=== PATIENT | male | born 1965 | race Caucasian/White ===

== ENCOUNTER 2024-01-11 10:56 | Outpatient (CLI) | payer MEDICARE, SELFPAY ==
[2024-01-11 11:26] LABS: Basophils # 0.1 K/mm3 (0-0.2); Basophils % 0.7 % (0.1-2.0); Eosinophils # 0.1 K/mm3 (0.0-0.4); Eosinophils % 1.7 % (0.1-12.0); Hemoglobin 14.7 g/dL (14.1-18.0); Lymphocytes # 2.3 K/mm3 (0.7-4.5); Mean Corpuscular HGB Conc 33.3 g/dL (31.8-35.4); Mean Corpuscular Hemoglobin 30.4 pg (27.0-31.2); Mean Corpuscular Volume 91.2 fl (80-94); Mean Platelet Volume 7.5 fl (7.4-10.4); Monocytes # 0.6 K/mm3 (0.1-1.0); Monocytes % 8.2 % (1.7-9.3); Neutrophils # 3.9 K/mm3 (1.8-7.8); Neutrophils % 56.4 % (37.0-80.0); Platelet Count 253 K/mm3 (142-424); Red Blood Count 4.83 M/mm3 (4.60-6.20); Red Cell Distribution Width 13.7 % (11.5-17.5); White Blood Count 6.8 K/mm3 (4.8-10.8)
[2024-01-11 11:55] LABS: Uric Acid 4.3 mg/dl (3.5-8.5)
[2024-01-11 11:59] LABS: Erythrocyte Sedimentation Rate 3 mm/hr (0-20)
[2024-01-11 12:00] LABS: C-Reactive Protein 5.5 mg/L (0-4)
[2024-01-12 08:30] LABS: RA Latex Turbid. <10.0 IU/mL (<14.0)
[2024-01-12 13:14] LABS: Anti-Cyclic Citrullinated Pept 6 units (0-19)
[2024-01-12 18:10] LABS: Antinuclear Antibodies, IFA Negative (.)
[2024-01-16 15:14] LABS: D001-IgE D pteronyssinus <0.10 kU/L (Class 0); D002-IgE D farinae <0.10 kU/L (Class 0); E001-IgE Cat Dander <0.10 kU/L (Class 0); E005-IgE Dog Dander <0.10 kU/L (Class 0); E072-IgE Mouse Urine <0.10 kU/L (Class 0); G002-IgE Bermuda Grass 2.09 kU/L (Class III); G006-IgE Timothy Grass 0.75 kU/L (Class II); Immunoglobulin E, Total 127 IU/mL (6-495); M001-IgE Penicillium chrysogen <0.10 kU/L (Class 0); M002-IgE Cladosporium herbarum <0.10 kU/L (Class 0); M003-IgE Aspergillus fumigatus <0.10 kU/L (Class 0); M006-IgE Alternaria alternata <0.10 kU/L (Class 0); T003-IgE Common Silver Birch 6.28 kU/L (Class IV); T006-IgE Cedar, Mountain 1.01 kU/L (Class II); T007-IgE Oak, White 4.65 kU/L (Class IV); T008-IgE Elm, American 3.25 kU/L (Class III); T010-IgE Walnut 6.32 kU/L (Class IV); T011-IgE Maple Leaf Sycamore 1.51 kU/L (Class III); T014-IgE Cottonwood 1.85 kU/L (Class III); T015-IgE Ash, White 8.82 kU/L (Class IV); T022-IgE Pecan, Hickory 5.31 kU/L (Class IV); T070-IgE White Mulberry 0.27 kU/L (Class 0/I); W001-IgE Ragweed, Short 2.32 kU/L (Class III); W011-IgE Thistle, Russian 1.14 kU/L (Class II); W014-IgE Pigweed, Common 2.12 kU/L (Class III); W018-IgE Sheep Sorrel 2.09 kU/L (Class III)
[2024-01-31 11:59] LABS: Antinuclear Antibodies (ANA) Negative
== END 2024-01-11 23:59 | disposition home or self-care (01) ==
LOC: LAB 10:57
PROVIDERS: PCP Family Medicine; Visit Provider Internal Medicine Pulmonary Disease
DX: J30.9 Allergic rhinitis, unspecified; J84.9 Interstitial pulmonary disease, unspecified; R06.09 Other forms of dyspnea; J98.4 Other disorders of lung
CPT/HCPCS: 36415; 82785; 84550; 85025; 85651; 86003; 86038; 86140; 86200; 86225; 86235; 86431

== ENCOUNTER 2024-02-08 14:07 | Outpatient (CLI) | payer MEDICARE, SELFPAY ==
--- NOTE | 2024-02-08 14:08 | CT_ITS ---
FINAL REPORT TECHNIQUE: Axial images were obtained from the lung apex to the mid abdomen by computed tomography. Coronal reformatted images were obtained. Supine inspiration and expiration and prone inspiration hi-resolution images were obtained and reviewed. This study was performed with techniques to keep radiation doses as low as reasonably achievable, (ALARA). Individualized dose reduction techniques using automated exposure control or adjustment of mA and/or kV according to the patient''s size were employed. CLINICAL HISTORY: .NODULE, shortness of breath, high resolution chest (inspiration and expiration, prone inspiration) COMPARISON: None FINDINGS: There is no axillary adenopathy. There is no hilar or mediastinal adenopathy. Heart size is normal. There are moderate coronary artery calcifications. There is no pericardial or pleural effusion. No suspicious infiltrate or nodule is identified. There is no evidence of bronchiectasis. Minimal scarring is noted at the bases. On prone images, scarring persists. On supine expiration images, there is no evidence of air trapping. Limited images of the upper abdomen demonstrate diffuse fatty infiltration liver. Density in the posterior right lobe of the liver is slightly higher attenuation in the adjacent parenchyma and measures 2.6 x 2.0 cm. This could represent hemangioma. IMPRESSION: Scarring in the bases. Subtle density right lobe of the liver may be a hemangioma. Correlation with infused CT abdomen and pelvis recommended for full characterization. Reviewed, Interpreted and Dictated by George Pineda MD Transcribed by Allie Mello Authenticated and [facility]
== END 2024-02-08 23:59 | disposition home or self-care (01) ==
LOC: RAD 14:08
PROVIDERS: PCP Family Medicine; Visit Provider Internal Medicine Pulmonary Disease
DX: J84.9 Interstitial pulmonary disease, unspecified (principal); R06.09 Other forms of dyspnea
CPT/HCPCS: 71250; 94060; 94618; 94726; 94729

== ENCOUNTER 2025-02-21 09:51 | Outpatient (CLI) | payer BC, MEDICARE, SELFPAY ==
--- OUTSIDE RECORDS SUMMARY | 2025-02-21 09:55 | XMS_ITS | Clinical Summary ---
Author Organization [facility] Address [address] [place] [address] Care Team Providers Care Singer And Unloader Name Role Phone Anabel Rubio MD Primary Care Provider + Allergies No known active allergies Medications tamsulosin (FLOMAX) 0.4 MG capsule 24 hr capsule Take 1 capsule by mouth Daily. 08/24/19 24 Active metFORMIN (GLUCOPHAGE) 500 MG tablet Take 2 tablets by mouth 2 (Two) Times a Day. 04/27/20 23 Active glipizide (GLUCOTROL XL) 5 MG ER tablet Take 1 tablet by mouth Every Morning. 08/24/19 24 Active aspirin 81 MG chewable tablet Chew 1 tablet Daily. Active metoprolol succinate XL (TOPROL-XL) 25 MG 24 hr tabletIndications:Abnorm al findings on diagnostic imaging of heart and coronary circulation,Primary hypertension,Type 2 diabetes mellitus without complication, without long-term current use of insulin,Pure hypercholesterolemia Take 1 tablet by mouth Daily. 90 tablet 1 11/17/19 24 Active lisinopril (PRINIVIL,ZESTRIL) 40 MG tablet Take 1 tablet by mouth Daily. 90 tablet 1 11/17/19 24 Active clopidogrel (PLAVIX) 75 MG tabletIndications:Primar y hypertension,Coronary artery disease of [place] artery of [place] heart with stable angina pectoris Take 1 tablet by mouth Daily. 90 tablet 3 02/22/20 24 Active atorvastatin (LIPITOR) 80 MG tabletIndications:Abnorm al findings on diagnostic imaging of heart and coronary circulation,Primary hypertension,Type 2 diabetes mellitus without complication, without long-term current use of insulin,Pure hypercholesterolemia Take 1 tablet by mouth once daily 30 tablet 01/11/20 25 Active Active Problems Problem Noted Date Diagnosed Date Coronary artery disease of n ative artery of [place] heart with stable angina pectoris 11/17/2023 Overview (11/17/2023): 11/07/2023 left heart cath-85% mid LAD stenosis treated 3.25 x 23 Xience EVELYNE, postdilated proximally 3.5 NC trek balloon. LV EF 55% Assessment & Plan (08/22/2024 12:56 PM EDT): S/P stent mid LAD 11/07/2023. Patient to continue aspirin, clopidogrel, atorvastatin, lisinopril, and metoprolol. Assessment & Plan (02/22/2024 12:52 PM EDT): Coronary Artery Disease (OPTIONAL): Coronary artery disease is stable. Continue current treatment regimen.Atorvastatin, clopidogrel, ASA, metoprolol, and lisinopril. Cardiac status will be reassessed in 6 months. Abnormal screening cardiac CT 10/27/2023 Abnormal PFT 10/02/2023 Assessment & Plan (10/02/2023 4:10 PM EDT): -Referral to pulmonology -Trial of Symbicort inhaler Gastroesophageal reflux disease 09/13/2023 Abnormal EKG 09/13/2023 SOB (shortness of breath) 09/13/2023 Assessment & Plan (10/02/2023 4:09 PM EDT): PFTs showed reduced lung volumes, increased FEV1/FVC ratio, diffusion defect and mal distribution, consistent with an interstitial process such as interstitial inflammation or fibrosis. Moderate restriction and mild diffusion defect noted. He has no known lung disease, although he has been told in the past that he may have asthma. We discussed pulmonology referral and he is agreeable. Tachycardia 09/13/2023 Assessment & Plan (10/02/2023 4:09 PM EDT): His resting heart rate is 90s to 120s. We discussed that his beta-matthew will most likely need to be increased after monitor results reviewed. Obstructive sleep apnea syndrome 04/27/2023 Assessment & Plan (11/15/2024 12:49 PM EDT): Patient has a baseline AHI 87 on a split study in 2019. Download shows good compliance and good control. Mask fit is comfortable. Patient is receiving benefit from pap therapy. Plan to continue current treatment. Follow up in 6 months or sooner for any MASON or PAP concerns. Assessment & Plan (08/22/2024 12:53 PM EDT): Patient has a baseline AHI 87 on a split study in 2019. Download shows good compliance and good control. Mask fit is comfortable. Patient reports that he has had his machine greater than 5 years and it is starting to run very loud at night waking his up. His tells him he needs to get a new machine through his insurance. Patient states that he could not do the titration study. He states airflow and mask fit are comfortable. We did discuss the 2-hour leak around his mask. Patient states that he does not hear at. Patient is receiving benefit from PAP therapy. Plan to continue current treatment. Prescription for new ResMed auto BiPAPI 18/ E 11 PS 7 with pap supplies sent to DME of patient choice. Follow-up in 6 weeks for insurance compliance visit. Assessment & Plan (02/22/2024 12:56 PM EDT): Patient has a baseline AHI on his split PSG 08/11/2018 of 87. Download shows suboptimal compliance with good control. Mask fit is comfortable. Patient does report that the airflow is feels a little strong and sometimes feels like he is smothering. Patient is agreeable to doing a titration study to consider BiPAP to BiPAP ST. Patient is benefiting from PAP therapy. Plan to continue. Follow-up in 4 weeks after titration study to review results. Hypertension 04/27/2023 Assessment & Plan (11/15/2024 12:55 PM EDT): Hypertension is stable and controlled Continue current treatment regimen. Patient to continue cpap therapy as untreated sleep apnea may potentiate hypertension. Blood pressure will be reassessed next scheduled follow-up. Patient to continue lisinopril and metoprolol. Low-sodium diet Weight loss Increase exercise as tolerated Assessment & Plan (08/22/2024 12:54 PM EDT): Hypertension is stable and controlled Continue current treatment regimen. Blood pressure will be reassessed next scheduled follow-up . Patient to continue lisinopril and metoprolol. Low-sodium diet Weight loss Increase exercise as tolerated Assessment & Plan (02/22/2024 12:53 PM EDT): He states he feels really tired since the Lisinopril dosage was increased. His states on the Lisinopril 40mg that his SBP has been 120-130s. We have discussed with patient and his that he could take 1 tablet daily as a trial, and to monitor blood pressure. If his Blood pressure stays controlled he may go back to taking 20mg daily instead of 40 mg daily. Low sodium diet Increase exercise as tolerated Type 2 diabetes mellitus 12/22/2022 Resolved Problems Problem Noted Date Diagnosed Date Resolved Date Precordial pain 10/27/2023 11/17/2023 Cellulitis of lower limb 09/13/202308/2023 Lymphedema 09/13/2023 09/13/2023 Palpitations 09/13/2023 11/17/2023 Vomiting 09/13/2023 09/13/2023 Encounters Date Type Department Care Team Description 01/30/2025 Telephone [facility] CARDIOLOGY [address] [phone] Melvina Martini APRN 01/09/2025 Refill [facility] [address] [facility] [address] [place] [address] Melvina Martini APRN Med Refill 11/23/2024 Refill [facility] [address] [facility] [address] [place] [address] Melvina Martini APRN Med Refill from Last 3 Months Immunizations Immunization Administration Dates Next Due Td, Not Adsorbed 11/07/2003 Tdap 04/25/2016 Family History Medical History Relation Name Comments Diabetes Father Stroke Father Atrial fibrillation Mother Relation Name Status Comments Father Mother Social History Tobacco Use Types Packs/Day Years Used Date Smoking Tobacco: Never Passive Smoke Exposure: Never Smokeless Tobacco: Never Tobacco Cessation:Counseling Given: Not Answered Alcohol Use Standard Drinks/Week Comments Never 0 (1 standard drink = 0.6 oz pur e alcohol) AUDIT-C Answer Date Recorded Q1: How often do you have a drink containing alcohol? Never 11/07/2023 Q2: How many drinks containi ng alcohol do you have on a typical day when you are drinking? Patient does not drink Q3: How often do you have si x or more drinks on one occasion? Never 11/07/2023 Abuse Screen Answer Date Recorded Feels Unsafe at Home or Work/School no 11/07/2023 Feels Threatened by Someone no 10/11 Does Anyone Try to Keep You From Having Contact with Others or Doing Things Outside Your Home? no 11/07/2023 Physical Signs of Abuse Present no 11/07/2023 Housing Stability Answer Date Recorded Current Living Arrangements home 10/11 Potentially Unsafe Housing Conditions Not on sonia e 11/07/2023 Disabilities Answer Date Recorded Difficulty Concentrating, Remembering or Making Decisions no 11/07/2023 Difficulty Managing Errands Independently no 11/07/2023 Sex and Gender Information Value Date Recorded Sex Assigned at Male 08/21/2024 11:58 AM EDT Legal Sex Male 8:36 AM EDT Gender Identity Not on file Sexual Orientation Not on file Last Filed Vital Signs Vital Sign Reading Time Taken Comments Blood Pressure 118/72 11/14/2024 1:46 PM EDT Pulse 91 11/14/2024 1:46 PM EDT Temperature - - Respiratory Rate 16 11/07/2023 11:48 AM EDT Oxygen Saturation 99% 11/14/2024 1:46 PM EDT Inhaled Oxygen Concentration - - Weight 115 kg (254 lb 4.8 oz) 11/14/2024 1:46 PM EDT Height 182.9 cm (6') 11/14/2024 1:46 PM EDT Body Mass Index 34.49 11/14/2024 1:46 PM EDT Plan of Treatment Health Maintenance Due Date Last Done Comments DIABETIC EYE EXAM 1976 DIABETIC FOOT EXAM 1976 URINE MICROALBUMIN-CREATININ E RATIO (uACR) 1976 Hepatitis B (1 of 3 - + 3- dose series) 1985 COLOGUARD 2011 COLON CANCER SCREENING 5 YEA R SIGMOIDOSCOPY 2011 COLONOSCOPY [address] CANCER SCREENING 2011 CT COLONOGRAPHY 2011 FECAL OCCULT BLOOD TEST 2011 FIT Testing (1 year) 2011 ZOSTER VACCINE (1 of 2) 2016 HEPATITIS C SCREENING 02/04/2017 HEMOGLOBIN A1C 10/21/2024 04/23/2024, 10/11, 09/08/2023, Additional history exists COVID-19 Vaccine ( - 2023-2 5 season) 2025 INFLUENZA VACCINE 03/12/2025 LIPID PANEL 04/23/2025 04/23/2024, 10/11, 09/08/2023, Additional history exists ANNUAL WELLNESS VISIT 04/26/2025 04/26/2024 TDAP/TD VACCINES (2 - Td or Tdap) 04/25/2026 016, 11/07/2003 Pneumococcal Vaccine 50+ Completed 04/26/2024 Medical Devices Implanted Type Area Tariff Expert Device Identifier Shelf Expiration Date Model / Serial / Lot Stnt Cornry Rx Xience/Skypoin t Rapdxng [id number] - [id number] Implanted:Qty: 1 on 11/07/2023 by Evin Mccoy MD at [facility] N/A: Heart [employer] 07/13/2025 [id number] / / [id number] Procedures Procedure Name Priority Date/Time Associated Diagnosis Comments HEMOGLOBIN A1C STAT 11/07/2023 9:20 AM EDT LIPID PANEL STAT 11/07/2023 9:20 AM EDT from Last 3 Months or Most Recently Relevant to Health Maintenance Results * (ABNORMAL) Hemoglobin A1c (11/07/2023 9:20 AM EDT) Hemoglobin A1C 7.90(H) 4.80 - 5.60 % 11/07/2023 10:10 AM EDT [facility] Blood Line / Unknown 11/07/2023 9: 20 AM EDT 11/07/2023 9:30 AM EDT [facility] - 11/07/2023 10:10 AM EDT Hemoglobin A1C Ranges: Increased Risk for Diabetes 5.7% to 6.4% Diabetes >= 6.5% Diabetic Goal < 7.0% Elizabeth Barone APRN LAB BLOOD ORDERABLES Final Result [facility]
[address] [place] [address], * (ABNORMAL) Lipid Panel (11/07/2023 9:20 AM EDT) Total Cholesterol 166 0 - 200 mg/dL 11/07/2023 9:52 AM EDT [facility] Triglycerides 92 0 - 150 mg/dL 11/07/2023 9:52 AM EDT [facility] HDL Cholesterol 42 40 - 60 mg/dL 11/07/2023 9:52 AM EDT [facility] LDL Cholesterol 107(H) 0 - 100 mg/dL 11/07/2023 9:52 AM EDT [facility] VLDL Cholesterol 17 5 - 40 mg/dL 11/07/2023 9:52 AM EDT [facility] LDL/HDL Ratio 2.51 11/07/2023 9:52 AM EDT [facility] Blood Line / Unknown 11/07/2023 9: 20 AM EDT 11/07/2023 9:30 AM EDT [facility] - 11/07/2023 9:52 AM EDT Cholesterol Reference Ranges (U.S. Department of Health and Human Services ATP III Classifications) Desirable <200 mg/dL Borderline High 200-239 mg/dL High Risk >240 mg/dL Triglyceride Reference Ranges (U.S. Department of Health and Human Services ATP III Classifications) Normal <150 mg/dL Borderline High 150-199 mg/dL High 200-499 mg/dL Very High >500 mg/dL HDL Reference Ranges (U.S. Department of Health and Human Services ATP III Classifications) Low <40 mg/dl (major risk factor for CHD) High >60 mg/dl ('negative' risk factor for CHD) LDL Reference Ranges (U.S. Department of Health and Human Services ATP III Classifications) Optimal <100 mg/dL Near Optimal 100-129 mg/dL Borderline High 130-159 mg/dL High 160-189 mg/dL Very High >189 mg/dL Elizabeth Barone APRN LAB BLOOD ORDERABLES Final Result [facility]
[address] [id number], from Last 3 Months or Most Recently Relevant to Health Maintenance Insurance MEDICARE A & B Care Teams Singer And Unloader Relationship Specialty Start Date End Date Anabel Rubio MD [address] [address] PCP - General Family Medicine 09/07/23
--- OUTSIDE RECORDS SUMMARY | 2025-02-21 09:55 | XMS_ITS | Encounter Summary ---
[facility] Organization [facility] Address [address] [place] [address] Care Team Providers Care Machine Design Checker Name Role Phone Anabel Rubio MD Primary Care Provider + Reason for Visit * Reason Comments Med Refill Encounter Details Date Type Department Care Team (Late st Contact Info) Description 01/09/2025 Refill [facility] C[facility]IOLOGY [address] [facility] [address] [place] [address] Melvina Martini APRN [address] [place], [place] [id number] Med Refill Social History Tobacco Use Types Packs/Day Years Used Date Smoking Tobacco: Never Passive Smoke Exposure: Never Smokeless Tobacco: Never Alcohol Use Standard Drinks/Week Comments Never 0 [...] on file Sexual Orientation Not on file documented as of this encounter Progress Notes * Patricia Farrell MA - 01/10/2025 3:17 PM EDTAddended by: PATRICIA FARRELL on: 01/10/2025 03:17 PM Modules accepted: Orders documented in this encounter Miscellaneous Notes * Telephone Encounter - Patricia Farrell MA - 01/10/2025 3:13 PM EDT Spoke to patient, patient stated he would go get labs done if we order them and fax to Dr. Rubio's office. I have added lab orders to encounter. Please advise. * Telephone Encounter - Patricia Farrell MA - 01/09/2025 9:18 AM EDT Requested labs from PCP documented in this encounter Plan of Treatment Scheduled Orders Name Type Priority Associated Diagnoses Orde r Schedule CBC & Differential Lab Panel Routine Abnormal findings on diagnostic imaging of heart and coronary circulation Primary hypertension Type 2 diabetes mellitus without complication, without long-term current use of insulin Pure hypercholesterolemia Expected: 01/15/2025 (Approximate), Expires: 04/12/2026 Lipid Panel Lab Routine Abnormal findings on diagnostic imaging of heart and coronary circulation Primary hypertension Type 2 diabetes mellitus without complication, without long-term current use of insulin Pure hypercholesterolemia Expected: 01/15/2025 (Approximate), Expires: 04/12/2026 Comprehensive Metabolic Panel Lab Routine Abnormal findings on diagnostic imaging of heart and coronary circulation Primary hypertension Type 2 diabetes mellitus without complication, without long-term current use of insulin Pure hypercholesterolemia Expected: 01/15/2025 (Approximate), Expires: 04/12/2026 Hemoglobin A1c Lab Routine Abnormal findings on diagnostic imaging of heart and coronary circulation Primary hypertension Type 2 diabetes mellitus without complication, without long-term current use of insulin Pure hypercholesterolemia Expected: 01/15/2025 (Approximate), Expires: 04/12/2026 documented as of this encounter Visit Diagnoses Diagnosis Abnormal findings on diagnostic imaging of heart and coronary circulation Primary hypertension Unspecified essential hypertension Type 2 diabetes mellitus without complication, without long-term current use of insulin Pure hypercholesterolemia documented in this encounter Care Teams Machine Design Checker Relationship Specialty Start Date End Date Anabel Rubio MD [address] [place] [id number] PCP - General Family Medicine 09/07/23 documented as of this encounter
--- OUTSIDE RECORDS SUMMARY | 2025-02-21 09:55 | XMS_ITS | Encounter Summary ---
[facility] Address [address] [place] [address] Care Team Providers Care Wedding Decorator Name Role Phone Anabel Rubio MD Primary Care Provider + Encounter Details Date Type Department Care Team (Late st Contact Info) Description 01/30/2025 Telephone [facility] CARDIOLOGY [address] [address] Melvina Martini APRN [address] [place] [address] Social History Tobacco Use Types Packs/Day Years [...] on file documented as of this encounter Miscellaneous Notes * Telephone Encounter - Libia Rosario RN - 02/04/2025 10:21 AM EDT Pt's relates he will do labs on 02/07/25 and will call once completed. * Telephone Encounter - Libia Rosario RN - 01/30/2025 11:11 AM EDT LVM for pt call back to see if labs have been done. documented in this encounter Plan of Treatment Not on file documented as of this encounter Visit Diagnoses Not on filedocumented in this encounter Care Teams Wedding Decorator Relationship Specialty Start Date End Date Anabel Rubio MD [address] [place] [id number] PCP - General Family Medicine 09/07/23 documented as of this encounter
--- OUTSIDE RECORDS SUMMARY | 2025-02-21 09:55 | XMS_ITS | Clinical Summary ---
Author Organization [facility] Address [address] [place] [address] Care Team Providers Care Intelligence Senior Sergeant Name Role Phone Anabel Rubio MD Primary Care Provider [phone] Allergies No known active allergies Medications montelukast (Singulair) 10 MG tablet Take 1 tablet (10 mg) by mouth 1 (one) time each day in the evening. Active atorvastatin (Lipitor) 10 MG tablet Take 1 tablet (10 mg) by mouth 1 (one) time each day in the evening. Active tamsulosin (Flomax) 0.4 MG 24 hr capsule Take 1 capsule (0.4 mg) by mouth every night. Active fluticasone (Flonase) 50 MCG/ACT nasal spray Administer 1 spray into each nostril 1 (one) time each day. Shake gently. Before first use, prime pump. After use, clean tip and replace cap. Active lisinopril 2.5 MG tabletIndications: Type 2 diabetes mellitus Take 1 tablet (2.5 mg) by mouth 1 (one) time each day. 30 tablet 11 3 Active amoxicillin-clavul anate (Augmentin) 875-125 MG tablet TAKE 1 TABLET BY MOUTH EVERY 12 HOURS WITH MEALS 3 Active ondansetron ODT (Zofran-ODT) 8 MG disintegrating tablet DISSOLVE 1 TABLET IN MOUTH THREE TIMES DAILY NEEDED 3 Active metFORMIN (Glucophage) 500 MG tabletIndications: Type 2 diabetes mellitus with hyperglycemia, without long-term current use of insulin (CMS/HCC) Take 2 tablets (1,000 mg) by mouth 2 (two) times a day with meals. 120 tablet 5 3 Active Active Problems Problem Noted Date Diagnosed Date Obstructive sleep apnea syndrome 04/27/2023 04/27/2023 Abnormal blood pressure 04/27/2023 04/27/20 Hypertension 04/27/2023 Type 2 diabetes mellitus 12/22/2022 Elevated BP without diagnosis of hypertension Family History Medical History Relation Name Comments Diabetes type II Father Relation Name Status Comments Father Social History Tobacco Use Types Packs/Day Years Used Date Smoking Tobacco: Never Smokeless Tobacco: Never Tobacco Cessation:Counseling Given: Not Answered Alcohol Use Standard Drinks/Week Comments Not Currently 0 (1 standard drink = 0.6 oz pur e alcohol) Sex and Gender Information Value Date Recorded Sex Assigned at Not on file Legal Sex Male 8:45 PM EDT Gender Identity Not on file Sexual Orientation Not on file Last Filed Vital Signs Vital Sign Reading Time Taken Comments Blood Pressure 118/82 10/26/2023 12:44 PM EDT Pulse 65 10/26/2023 12:44 PM EDT Temperature - - Respiratory Rate 17 10/26/2023 12:44 PM EDT Oxygen Saturation 95% 10/26/2023 12:44 PM EDT Inhaled Oxygen Concentration - - Weight 117 kg (258 lb) 10/26/2023 10:36 AM EDT Height 182.9 cm (6') 10/26/2023 10:36 AM EDT Body Mass Index 34.99 10/26/2023 10:36 AM EDT Plan of Treatment Health Maintenance Due Date Last Done Comments [facility]-Depression Screening 1966 [facility]-HIV Screening 1966 [facility]-Hepatitis C Screening 1966 [facility]-Medicare Annual Wellness (AWV) 1966 [facility]-Infant/Child/Adol SDOH Screenings 1966 Diabetes: Dental Exam 1976 [facility]- SDOH Screenings 1984 [facility]-Adult SDOH Screenings 1984 [facility]-Hepatitis B Vaccines (1 of 3 - 19+ 3-dose series) 1985 [facility]-Pneumococcal Vaccine: 50 + Years (1 of 2 - PCV) 1985 CT Colonography 2011 Colonoscopy 2011 FIT-DNA 2011 FIT 2011 FOBT 2011 Sigmoidoscopy 2011 [facility]-Colorectal Cancer Screening 2011 [facility]-Zoster Vaccines (1 of 2) 2016 [facility]-Diabetes: Hemoglobin A1C 10/25/2023, 12/22/2022 [id number] Vaccine (1 - season) 2025 [facility]-Influenza Vaccine (#1) 2025 [facility]-DTaP,Tdap,and Td Vaccine s (2 - Td or Tdap) 04/25/2026 04/25/2016, 11/07/2003 [facility]-Obesity Intervention Completed 023, 12/22/2022 HPV Vaccines Aged Out No longer eligi ble based on patient's age to complete this topic [facility]-HIB Vaccines Aged Out No longer e ligible based on patient's age to complete this topic [facility]-Hepatitis A Vaccines Aged Out No longer eligible based on patient's age to complete this topic [facility]-IPV Vaccines Aged Out No longer e ligible based on patient's age to complete this topic [facility]-Rotavirus Vaccines Aged Out No lo nger eligible based on patient's age to complete this topic Procedures Procedure Name Priority Date/Time Associated Diagnosis Comments POCT GLYCOSYLATED HEMOGLOBIN (HGB A1C) Routine 04/27/2023 12:28 PM EST Type 2 diabetes mellitus with hyperglycemia, without long-term current use of insulin ([facility]) from Last 3 Months or Most Recently Relevant to Health Maintenance Results * POCT glycosylated hemoglobin (Hb A1C) docked device (04/27/2023 12:28 PM EST) POCT Hemoglobin A1C 10.2 <5.7% Non-Diabe tic [facility] Kit Lot Number [id number] [facility] Kit Expiration Date 03/11/2025 [facility] Blood Venous blood specimen / Unknown 04/27/2023 12:28 PM EST Rafaela HEART POINT OF CARE TEST EN TER/EDIT ORDERABLES Final Result [facility] [address] [place] [address] from Last 3 Months or Most Recently Relevant to Health Maintenance Insurance MEDICARE Care Teams Intelligence Senior Sergeant Relationship Specialty Start Date End Date Anabel Rubio MD [address] [facility] [address] [place] [address] PCP - General 09/15/22
[2025-02-21 10:45] VITALS: PULSE 69; PULSE 73
[2025-02-21] MEDS: ALBUTEROL 0.083% 2.5 MG/3 ML NEB IH (10:45)
== END 2025-02-21 23:59 | disposition home or self-care (01) ==
PROVIDERS: PCP Family Medicine; Visit Provider Internal Medicine Pulmonary Disease
DX: R94.2 Abnormal results of pulmonary function studies (principal); R06.02 Shortness of breath; R06.09 Other forms of dyspnea
CPT/HCPCS: 94060; 94618; 94640; 94726; 94729